=== PATIENT | female | born 1980 | race Caucasian/White ===

== ENCOUNTER 2018-07-03 18:00 | Emergency (ER) | payer BC ==
--- NOTE | 2018-07-03 18:26 | Emergency Department Record ---
History of Present Illness - General Chief Complaint: Laceration(s) Stated Complaint: RT INDEX LAC Time Seen by Provider: 07/03/18 18:14 Source: Patient Mode of Arrival: Ambulatory Limitations: No limitations - History of Present Illness Initial Commments: 38 yo female presents to ED for evaluation of a laceration to the right index finger while cleaning a can just prior to arrival. Patient reports bleeding without numbness, tingling, or flexion/extension weakness. Patient denies other injury on examination, reports that her last tetanus was 4 year ago. Patient denies health problems at her baseline. Onset/Timin -: Minutes(s) Extremity Location: Right: Hand Place: Home Context: Accidental Associated Symptoms: None Treatments Prior to Arrival: Bandage - [place] Coma Scale Eye Response: (4) Open spontaneously Motor Response: (6) Obeys commands Verbal Response: (5) Oriented [place] Total: 15 - Related Data Patient Tetanus UTD (within 5 yrs): No Home Medications Medication Instructions Recorded Confirmed Last Taken Multivitamin [Multi-Vitamin Daily] 1 each PO DAILY 07/03/18 07/03/18 07/03/18 Allergies Allergy/AdvReac Type Severity Reaction Status Date / Time hydrocodone Allergy Intermediate ALTERED Verified 07/03/18 18:09 MENTAL STATUS Travel Screening - Travel/Exposure Within Last 30 Days Have you traveled within the last 30 days?: No - Travel/Exposure Within Last Year Have you traveled outside the [place] in the last year?: No - Additonal Travel Details Have you been exposed to anyone with a communicable illness?: No - Travel Symptoms Symptom Screening: None Review of Systems Constitutional: Denies: Chills, Fever, Malaise, Night sweats Eyes: Denies: Eye discharge, Eye pain ENT: Denies: Congestion, Ear pain, Epistaxis Respiratory: Denies: Cough, Dyspnea Cardiovascular: Denies: Chest pain, Dyspnea on exertion Endocrine: Denies: Fatigue, Heat or cold intolerance Gastrointestinal: Denies: Abdominal pain, Nausea, Vomiting Genitourinary: Denies: Incontinence, Retention Musculoskeletal: Denies: Arthralgia, Back pain Skin: Reports: Other (Skin laceration). Denies: Bruising, Change in color Neurological: Denies: Abnormal gait, Confusion, Headache, Tingling Psychiatric: Denies: Anxiety Hematological/Lymphatic: Denies: Anemia, Blood Clots Past Medical History - SOCIAL HISTORY Smoking Status: Never smoker Alcohol Use: None Drug Use: None - RESPIRATORY Hx Respiratory Disorders: No - CARDIOVASCULAR Hx Cardio Disorders: No - NEURO Hx Neuro Disorders: No - GI Hx GI Disorders: No - Hx Genitourinary Disorders: No - ENDOCRINE Hx Endocrine Disorders: No - MUSCULOSKELETAL Hx Musculoskeletal Disorders: No - PSYCH Hx Psych Problems: No - HEMATOLOGY/ONCOLOGY Hx Hematology/Oncology Disorders: No Family Medical History Any Significant Family History?: No Physical Exam - General General Appearance: Alert, Oriented x3, Cooperative, Mild distress Limitations: No limitations - Head Head exam: Atraumatic, Normocephalic, Normal inspection Head exam detail: negative: Abrasion, Contusion, Asencio's sign, General tenderness, Hematoma, Laceration - Eye Eye exam: Normal appearance. negative: Conjunctival injection, Periorbital swelling, Periorbital tenderness, Scleral icterus - ENT Ear exam: negative: Auricular hematoma, Auricular trauma Nasal Exam: negative: Active bleeding, Discharge, Dried blood, Foreign body Mouth exam: negative: Drooling, Laceration, Muffled voice, Tongue elevation - Neck Neck exam: Normal inspection. negative: Meningismus, Tenderness - Respiratory Respiratory exam: Normal lung sounds bilaterally. negative: Respiratory distress, Rhonchi, Stridor, Wheezes - Cardiovascular Cardiovascular Exam: Regular rate, Normal rhythm, Normal heart sounds - GI/Abdominal GI/Abdominal exam: Soft. negative: Rebound, Rigid, Tenderness - Rectal Rectal exam: Deferred - exam: Deferred - Extremities Extremities exam: Tenderness, Other (1.5 cm superficail laceration to the lateral aspect of the right index finger, bleeding controlled, flexion/ extension are intact against resistance, no evidence for tendon laceration is present on examination.). negative: Calf tenderness, Pedal edema - Back Back exam: Denies: CVA tenderness (R), CVA tenderness (L) - Neurological Neurological exam: Alert, Normal gait, Oriented X3 - Psychiatric Psychiatric exam: Normal affect, Normal mood - Skin Skin exam: Normal color. negative: Abrasion Type of lesion: negative: abrasion Course Vital Signs 07/03/18 18:01 Temperature 97.6 F Pulse Rate 87 Respiratory 16 Rate Blood Pressure 113/79 Pulse Ox 98 - Reevaluation(s) Reevaluation #1: 07/03/18 18:29 MDM: Following discussion with the patient re: pros/cons of suture repair vs. tissue adhesive, patient would prefer tissue adhesive. Procedure Note: 1.5 cm laceration to the DIP aspect of the right index finger along the dorsal/ lateral aspect, bleeding controlled. Wound was cleaned with Shur-clens solution , no FB identified on examination. No tendon injury is visualized on examination. Wound was then closed with Dermabond solution without complications. Patient reports that her last tetanus was 4 years ago (time of of her first son), offered an update in the ED. Patient declined, was encouraged to call her specialty molder tomorrow to ensure that her last tetanus was < 5 year ago. Patient appears stable for discharge at this time. Disposition Disposition: Discharge Clinical Impression: Finger laceration Qualifiers: Encounter type: initial encounter Finger: index finger Damage to nail status: without damage Foreign body presence: without foreign body Laterality: right Qualified Code(s): S61.210A - Laceration without foreign body of right index finger without damage to nail, initial encounter Condition: (2) Stable Instructions: Skin Adhesive Care (ED) Additional Instructions: Return to ED if your symptoms worsen or if you have any concerns. Call your specialty molder tomorrow to determine if your tetanus is current. Follow-up with your family doctor in 3-5 days as directed. Forms: Patient Portal Access Time of Disposition: 18:25 Quality - Quality Measures Quality Measures: N/A - Blood Pressure Screening Does Patient Have Any of the Following: No Blood Pressure Classification: Normal BP Reading Systolic Measurement: 113 Diastolic Measurement: 79 Screening for High Blood Pressure: < Normal BP, F/U Not Required > [[id number]]
== END 2018-07-03 18:38 | disposition home or self-care (01) ==
LOC: ER 18:00
DX: S61.210A Laceration without foreign body of right index finger without damage to nail, initial encounter (principal); W45.8XXA Other foreign body or object entering through skin, initial encounter; Y93.E9 Activity, other interior property and clothing maintenance
CPT/HCPCS: 99282; 99283